=== PATIENT | male | born 1990 | race African-American/Black ===

== ENCOUNTER 2022-11-08 16:00 | Inpatient (IN) | payer OTHER ==
[2022-11-08 17:18] VITALS: BMI 19.5
[2022-11-08] MEDS ORDERED: ONDANSETRON *ODT* 4 MG TABLET SL PRN (18:02)
[2022-11-08] MEDS ORDERED: guaiFENesin 600 MG TABLET.ER (FP) PO PRN (18:02)
[2022-11-08] MEDS ORDERED: MAGNESIUM HYDROX 2400MG/30ML ORAL SUSPENSION 30 ML CUP PO PRN (18:02)
[2022-11-08] MEDS ORDERED: DICYCLOMINE HCL 10 MG CAPSULE PO PRN (18:02)
[2022-11-08] MEDS ORDERED: BENZOCAINE/MENTHOL (CHLORASEPTIC ) LOZENGE MM PRN (18:02)
[2022-11-08] MEDS ORDERED: NALOXONE HCL 0.4 MG/ML VIAL IM PRN (18:02)
[2022-11-08] MEDS ORDERED: ACETAMINOPHEN 325 MG TABLET (FP) PO PRN (18:02)
[2022-11-08] MEDS ORDERED: LOPERAMIDE HCL 2 MG CAPSULE PO PRN (18:02)
[2022-11-08] MEDS ORDERED: MAG HYDROX/AL HYDROX/SIMETH 30 ML UNIT-DOSE CUP PO PRN (18:02)
[2022-11-08] MEDS ORDERED: BENZONATATE 200 MG CAPSULE PO PRN (18:02)
[2022-11-08] MEDS ORDERED: POLYETHYLENE GLYCOL (HEALTHYLAX) 3350 17 GM PACKET PO PRN (18:02)
[2022-11-08] MEDS ORDERED: IBUPROFEN 400 MG TABLET (FP) PO PRN (18:02)
[2022-11-08] MEDS ORDERED: BISMUTH SUBSALICYLATE 524 MG/30 ML PO PRN (18:02)
[2022-11-08] MEDS ORDERED: NALOXONE HCL (KLOXXADO) 8 MG SPRAY NS PRN (18:02)
[2022-11-08] MEDS: MELATONIN 5 MG TABLETS PO SCH (22:23)
[2022-11-08] MEDS: THIAMINE HCL 100 MG TABLET (FP) PO SCH (22:23)
[2022-11-08] MEDS: hydrOXYzine PAMOATE 25 MG CAPSULE (FP) PO PRN (22:24)
[2022-11-08] MEDS: METHOCARBAMOL 500 MG TABLET PO PRN (22:24)
[2022-11-09] MEDS: PRENATAL VITAMINS W/ FOLIC ACID TABLET (FP) PO SCH (10:20)
[2022-11-09] MEDS: hydrOXYzine PAMOATE 25 MG CAPSULE (FP) PO PRN ×2 (10:20→22:00)
[2022-11-09] MEDS: METHOCARBAMOL 500 MG TABLET PO PRN ×2 (10:20→22:00)
[2022-11-09 10:27] LABS: HEMATOCRIT 38.9 % (35.4-49); HEMOGLOBIN 12.8 GM/dL (11.7-16.9); MCH 29.2 pg (25.7-33.7); MCHC 32.9 g/dl (32.0-35.9); MEAN CELL VOLUME 88.6 fl (80-96); MEAN PLT VOLUME 8.5 fl (7.5-11.1); PLATELET COUNT 229 10^3/uL (134-434); RBC 4.39 M/mm3 (4.00-5.60); RDW 13.4 % (11.9-15.9); WHITE BLOOD COUNT 6.1 K/mm3 (4.0-10.0)
[2022-11-09 10:44] LABS: POTASSIUM 3.9 mmol/L (3.5-5.1)
[2022-11-09 10:46] LABS: BLOOD UREA NITROGEN 8.7 mg/dL (7-18); CALCIUM 9.1 mg/dL (8.5-10.1)
[2022-11-09 10:47] LABS: ALBUMIN 3.5 g/dl (3.4-5.0)
[2022-11-09 10:51] LABS: BILIRUBIN,TOTAL 0.4 mg/dL (0.2-1); TOT PROT 5.9 g/dl (6.4-8.2)
[2022-11-09 21:49] VITALS: TEMP 97.7
[2022-11-09] MEDS: MELATONIN 5 MG TABLETS PO SCH (22:00)
[2022-11-09] MEDS: THIAMINE HCL 100 MG TABLET (FP) PO SCH (22:00)
[2022-11-10] MEDS: IBUPROFEN 600 MG TABLET (FP) PO PRN ×2 (00:45→10:31)
[2022-11-10] MEDS: METHOCARBAMOL 500 MG TABLET PO PRN ×2 (03:02→10:30)
[2022-11-10 09:04] VITALS: BP 112/65; PULSE 62; RESP 16
[2022-11-10] MEDS: hydrOXYzine PAMOATE 25 MG CAPSULE (FP) PO PRN (10:30)
[2022-11-10] MEDS: PRENATAL VITAMINS W/ FOLIC ACID TABLET (FP) PO SCH (10:33)
== END 2022-11-10 10:54 | disposition home or self-care (01) | DRG 773 ==
LOC: YASAS 16:00 → Y6N 18:08
PROVIDERS: ADMIT Allergy & Immunology; ATTEND Surgery
PROC: HZ2ZZZZ Detoxification Services for Substance Abuse Treatment (ICD-10-PCS; principal; 2022-11-08)
DX: F11.20 Opioid dependence, uncomplicated (principal); Z87.891 Personal history of nicotine dependence; Z28.310 Unvaccinated for COVID-19; Z28.9 Immunization not carried out for unspecified reason
CPT/HCPCS: 36415; 80053; 85027; 86780; 87635; 93005; 93010